=== PATIENT | female | born 1995 | race Two or more races ===

== ENCOUNTER 2022-05-01 04:39 | Emergency (ER) | payer MEDICAID, OTHER ==
[~2022-05-01] VITALS: Ht 180.3 cm; Wt 158.8 kg
[2022-05-01] MEDS ORDERED: KETOROLAC TROMETHAMINE 60 MG INJ IM ONE ×2 (05:04→05:15)
[2022-05-01] MEDS ORDERED: OXYC-128 PO (05:06)
--- NOTE | 2022-05-01 05:42 | NUR ---
Patient discharged to home in stable condition. Written and verbal after care instructions given. Patient verbalizes understanding of instructions. Stressed follow up or return to ER for worsening s/s. Crutches dispensed. Pt instructed on proper use of crutches. Patient able to demonstrate correct use of crutches.
[2022-05-01 05:43] VITALS: BP 13/77
== END 2022-05-01 05:44 | disposition home or self-care (01) ==
LOC: ER 04:48
DX: M25.461 Effusion, right knee (principal); S89.91XA Unspecified injury of right lower leg, initial encounter; W18.39XA Other fall on same level, initial encounter; W52.XXXA Crushed, pushed or stepped on by crowd or human stampede, initial encounter; Y93.41 Activity, dancing; Y92.89 Other specified places as the place of occurrence of the external cause
CPT/HCPCS: 73562; 96372; 99283; J1885; A4663

== ENCOUNTER 2022-06-28 12:34 | Emergency (ER) | payer OTHER ==
[~2022-06-28] VITALS: Ht 180.3 cm; Wt 152.4 kg
[~2022-06-28 12:34] MED LIST: OXYC-128 PO
--- NOTE | 2022-06-28 12:45 | NUR ---
DR CHRISTY AT ROOM 4A FOR MSE.
[2022-06-28] MEDS ORDERED: PRAZ1CAP5 PO (12:50)
[2022-06-28] MEDS ORDERED: SERT50TA PO (12:50)
[2022-06-28] MEDS ORDERED: ONDANSETRON 4 MG/2 ML VIAL IV ONE (13:00)
[2022-06-28] MEDS ORDERED: IV NORMAL SALINE 1000 ML BAG IV ONE (13:00)
[2022-06-28] MEDS ORDERED: ONDANSETRON 4 MG/2 ML VIAL ONE (13:05)
[2022-06-28 13:10] LABS: HEMATOCRIT 35.7 % (31.2-41.9); MEAN CORPUSCULAR HEMOGLOBIN 24.8 uug (24.7-32.8); MEAN CORPUSCULAR VOLUME 78.3 fL (75.5-95.3); PLATELET COUNT (AUTO) 354 K/uL (179-408)
[2022-06-28 13:28] LABS: BILIRUBIN,TOTAL 0.2 mg/dL (0.2-1.0); CREATININE 0.8 mg/dL (0.6-1.3); TOTAL PROTEIN, SERUM 7.6 g/dL (6.4-8.2)
[2022-06-28 15:02] LABS: *BILIRUBIN,URIN NEGATIVE (NEGATIVE); *BLOOD, URINE NEGATIVE (NEGATIVE); *CLARITY,URINE CLEAR (CLEAR); *COLOR,URINE YELLOW (YELLOW); *KETONES,URINE NEGATIVE (NEGATIVE); *UROBILINOGEN,URINE 0.2 E.U./dl (NORMAL); LEUKOCYTE ESTERASE ,URINE 2+ (NEGATIVE); NITRITE, URINE NEGATIVE (NEGATIVE); UGLUCOSE NEGATIVE (NEGATIVE)
[2022-06-28 15:04] LABS: *URINE HCG, QUAL NEG (NEGATIVE)
--- NOTE | 2022-06-28 15:37 | NUR ---
Pt has been cleared for DC by ER MD. IV removed. Catheter intact and site benign. Pressure and 4x4 gauze applied to site. No bleeding noted.Written and verbal after care instructions given. Patient verbalizes understanding of instructions. Stressed follow up or return to ER for worsening s/s. Patient discharged to home in stable condition., ambulated out of ED in steady gait.
[2022-06-28 15:38] VITALS: BP 125/85
[2022-06-28 20:00] LABS: BACTERIA,URINE MANY /HPF (NONE SEEN); RBC,URINE 0-3 /HPF (0-3); SQUAMOUS EPITHELIAL CELL,UR MODERATE /HPF (NONE SEEN)
== END 2022-06-28 15:39 | disposition home or self-care (01) ==
LOC: ER 12:34
DX: T43.221A Poisoning by selective serotonin reuptake inhibitors, accidental (unintentional), initial encounter (principal); T50.7X1A Poisoning by analeptics and opioid receptor antagonists, accidental (unintentional), initial encounter; R06.02 Shortness of breath; R11.2 Nausea with vomiting, unspecified; Y92.039 Unspecified place in apartment as the place of occurrence of the external cause; R73.03 Prediabetes; F32.A Depression, unspecified; E66.9 Obesity, unspecified; Z68.42 Body mass index [BMI] 45.0-49.9, adult; F43.10 Post-traumatic stress disorder, unspecified; F41.9 Anxiety disorder, unspecified; I10 Essential (primary) hypertension; R94.31 Abnormal electrocardiogram [ECG] [EKG]
CPT/HCPCS: 99285; 96374; 71045; 96361; 80053; 81001; 84703; 85025; 87086; 36415; 93005; J2405; J7040; A4663

== ENCOUNTER 2022-07-24 02:26 | Emergency (ER) | payer OTHER ==
[~2022-07-24] VITALS: Ht 180.3 cm; Wt 152.4 kg
[~2022-07-24 02:26] MED LIST changes: -OXYC-128 PO; +PRAZ1CAP5 PO; +SERT50TA PO
[2022-07-24] MEDS ORDERED: DEXAMETHASONE SOD PHOSPHATE 4 MG INJ IM ONE (04:45)
[2022-07-24] MEDS ORDERED: DEXAMETHASONE SOD PHOSPHATE 10 MG INJ ONE (04:47)
--- NOTE | 2022-07-24 05:23 | NUR ---
Patient discharged to home in stable condition. Written and verbal after care instructions given. Patient verbalizes understanding of instructions. Stressed follow up or return to ER for worsening s/s.
[2022-07-24 05:24] VITALS: BP 125/66
== END 2022-07-24 05:24 | disposition home or self-care (01) ==
LOC: ER 02:30
DX: J02.9 Acute pharyngitis, unspecified (principal); R59.0 Localized enlarged lymph nodes; R73.03 Prediabetes; F32.A Depression, unspecified; Z79.899 Other long term (current) drug therapy; E66.9 Obesity, unspecified; Z68.42 Body mass index [BMI] 45.0-49.9, adult
CPT/HCPCS: 99283; 87070; 96372; J1100; A4663

== ENCOUNTER 2023-03-05 07:21 | Emergency (ER) | payer OTHER ==
[~2023-03-05] VITALS: Ht 175.3 cm; Wt 152.0 kg
--- NOTE | 2023-03-05 07:48 | NUR ---
PT IS IN ROOM #3. DR MCNAEL EVALUATED THE PT.
[2023-03-05] MEDS ORDERED: IBUPROFEN 800 MG TABLET ONE (08:12)
[2023-03-05] MEDS ORDERED: IBUPROFEN 800 MG TABLET PO ONE (08:15)
[2023-03-05] MEDS ORDERED: HYDR-4209 PO (09:26)
--- NOTE | 2023-03-05 10:11 | NUR ---
PT WAS D/C'd TO HOME. D/C INSTRUCTIONS GIVEN TO THE PT BY DR MCNEAL.
[2023-03-05 10:14] VITALS: BP 142/75
== END 2023-03-05 10:15 | disposition home or self-care (01) ==
LOC: ER 07:21
DX: M25.571 Pain in right ankle and joints of right foot (principal); Z79.899 Other long term (current) drug therapy
CPT/HCPCS: 73610; A4663